=== PATIENT | male | born 1970 | race Caucasian/White ===

== ENCOUNTER → 2022-02-21 10:00 | Outpatient (BNVA) | payer SELFPAY | PROVIDERS: Visit Provider Emergency Medicine | DX: R10.11 Right upper quadrant pain (principal) | CPT/HCPCS: 80053; 85025 ==

== ENCOUNTER 2022-03-26 10:07 | Emergency (ER) | payer SELFPAY ==
[2022-03-26 10:33] VITALS: BP 164/97; PULSE 71; RESP 18; TEMP 36.8; O2SAT 95; BMI 39.0
[2022-03-26 10:40] VITALS: BP 138/90; RESP 18; O2SAT 93
--- NOTE | 2022-03-26 10:42 | USR_ITS ---
PROCEDURE INFORMATION: Exam: US Abdomen, Limited; Right Upper Quadrant Exam date and time: 03/26/2022 11:06 AM Age: 51 years old Clinical indication: Abdominal pain; Acute; Additional info: Ruq pain TECHNIQUE: Imaging protocol: Real time ultrasound of the abdomen with image documentation. Limited exam focused on the right upper quadrant. COMPARISON: No relevant prior studies available. FINDINGS: Liver: Enlarged liver with diffusely increased echogenicity, most commonly seen in hepatic steatosis, though other forms of parenchymal liver disease could have a similar appearance. There is an ill defined ficus of decreased attenuation adjacent to the gallbladder, likely representing focal fat sparing. Gallbladder: Normal. No gallstones. There is no gallbladder wall thickening. Biliary ducts: Normal. No stones. No dilation. Pancreas: Obscured by overlying bowel gas. Right kidney: Normal echogenicity. There is an incompletely characterized hypoechoic lesion in the lower kidney, measuring 1.4 x 1.1 x 1.5 cm. No hydronephrosis. US/US gall bladder 18361 IMPRESSION: 1. Hyperechoic liver, which can be seen with fatty infiltration or hepatocellular disease. 2. Incompletely characterized hypoechoic lesion in the right lower kidney. Further evaluation with contrast enhanced abdomen MRI is recommended.
--- NOTE | 2022-03-26 11:56 | ED_ITS ---
HPI - Abdominal Pain General: Chief Complaint: Abdominal Pain Stated Complaint: Gallbadder pain Time Seen by Provider: 03/26/22 11:30 History of Present Illness: 51-year-old male presents with epigastric pain that radiates around to the right side into his back. He reports that he gets worse after he eats. He gets kind of a fullness feeling. He has some some occasional nausea but none right now. No vomiting, no diarrhea. Patient reports been going on for 7-8 weeks. Patient reports no fever, cough, shortness of breath or other systemic complaints. Associated Symptoms: Reports bloating and nausea; Denies chills, diarrhea, fever(s) and vomiting Review of Systems Const: Denies: fever(s), chills or body aches Eyes: Denies: change in vision ENMT: Denies: throat pain or hoarseness Card: Denies: chest pain or palpitations Resp: Denies: dyspnea or productive cough GI: Reports: abdominal pain, nausea and bloating; Denies: vomiting or diarrhea : Denies: difficulty urinating or urinary frequency Musc: Denies: extremity pain or extremity swelling Skin/Breast: Denies: rash or pruritus Neuro: Denies: headache(s) or dizziness PFSH ED PFSH: Social History Smoking and tobacco status: current every day smoker Physical Exam Const: COMMON NORMALS: no acute distress, patient oriented x3, no limitations and alert NUTRITIONAL APPEARANCE: overweight HENMT: COMMON NORMALS: hearing grossly normal bilaterally and moist oral mucous membranes Eye: COMMON NORMALS: EOMs intact bilaterally and no scleral icterus Resp: COMMON NORMALS: normal respiratory effort, No retractions, No use of accessory muscles and clear to auscultation bilaterally AUSCULTATION: clear to auscultation bilaterally Cardio: COMMON NORMALS: regular rate and regular rhythm RATE: regular rate RHYTHM: regular rhythm GI: COMMON NORMALS: Normal to inspection, nondistended, normoactive bowel sounds present and Soft to palpation PALPATION: Yes Soft to palpation and Yes Tenderness to palpation present (GI) (very minimal epigastric ) Extremity: COMMON NORMALS: full ROM and capillary refill normal Neuro: COMMON NORMALS: patient oriented x3, moves all extremities, no focal motor deficits and no sensory deficits noted SENSORIUM/ORIENTATION: Yes alert Psych: COMMON NORMALS: mental status grossly normal, cooperative, normal affect and speech normal SPEECH: Yes normal speech Skin: COMMON NORMALS: no rashes or lesions noted and no wounds GENERAL SKIN EXAM: no rashes or lesions noted Course Vital Signs: Vital signs: Vital Signs Temperature 98.3 F 03/26/22 10:33 Pulse Rate 65 03/26/22 12:10 Respiratory Rate 18 03/26/22 12:10 Blood Pressure 138/90 03/26/22 12:10 Pulse Oximetry 93 03/26/22 12:10 Oxygen Delivery Me thod 03/26/22 12:10 MDM - Abdominal Pain Medical Decision Making Patient with negative right upper quadrant ultrasound, negative labs. Discussed with him that we will treat him to begin with for gastritis. I will give him a GI cocktail and recommended Pepcid twice daily for a week. The symptoms or not improving recommend he follows up with his primary care provider for a GI consultation. Discussed that he may need a gallbladder function test versus an upper GI. Patient stable and discharged home Lab Data : 03/26/22 12:22 03/26/22 12:22 Labs/Radiology: Radiology Impressions Gallbladder Ultrasound 03/26/22 10:42 IMPRESSION: 1. Hyperechoic liver, which can be seen with fatty infiltration or hepatocellular disease. 2. Incompletely characterized hypoechoic lesion in the right lower kidney. Further evaluation with contrast enhanced abdomen MRI is recommended. Laboratory Results WBC 9.9 10^3/uL (4.0-10.0) 03/26/22 12: RBC 5.37 10^6/uL (4.1-5.3) H 03/26/22 12:22 Hgb 15.8 g/dL (11.7-16.6) 03/26/22 12:22 Hct 46.5 % (42.0-52.0) 03/26/22 12: MCV 86.6 fl (80-94) 03/26/22 12: MCH 29.4 pg (28.0-34.0) 03/26/22 12: MCHC 34.0 g/dL (30.0-36.0) 03/26/22 12: RDW 12.2 % (12.1-15.1) 03/26/22 12:22 Plt Count 257 10^3/cmm (130-400) 03/26/22 12: MPV 10.3 fL (7.4-10.4) 03/26/22 12: Neut % (Auto) 55.8 % 03/26/22 12: Lymph % (Auto) 31.6 % 03/26/22 12: [place] % (Auto) 7.5 % 03/26/22 12: Eos % (Auto) 3.4 % 03/26/22 12: Baso % (Auto) 0.8 % 03/26/22 12: Neut # (Auto) 5.51 10^3/uL (1.8-7.7) 03/26/22 12: Lymph # (Auto) 3.1 10^3/uL (0.8-4.8) 03/26/22 12: [place]ent # (Auto) 0.7 10^3/uL (0.2-0.9) 03/26/22 12: Eos # (Auto) 0.3 10^3/uL (0.0-0.8) 03/26/22 12: Baso # (Auto) 0.1 10^3/uL (0.0-0.1) 03/26/22 12: Nucleated RBC % (auto) 0 % 03/26/22 12: Nucleated RBCs # 0.0 /100WBC 03/26/22 12: Potassium 4.0 mmol/L (3.5-5.1) 03/26/22 12: Chloride 101 mmol/L (98-107) 03/26/22 12: Carbon Dioxide 25 mmol/L (22-29) 03/26/22 12:22 Anion Gap 13.0 (5-19) 03/26/22 12:22 BUN 10 mg/dL (6-20) 03/26/22 12: Creatinine 0.7 mg/dL (0.7-1.2) 03/26/22 12: GFR Calculation 118.0 mL/min (90-130) 03/26/22 12:22 Glucose 108 mg/dL (65-115) 03/26/22 12:22 Calcium 9.3 mg/dL (8.5-10.5) 03/26/22 12:22 Total Bilirubin 0.3 mg/dL (0.15-1.2) 03/26/22 12:22 AST 14 U/L (0-40) 03/26/22 12:22 ALT 23 U/L (0-41) 03/26/22 12:22 Alkaline Phosphatase 63 U/L (40-130) 03/26/22 12:22 Total Protein 7.2 g/dL (6.6-8.7) 03/26/22 12:22 Albumin 4.0 g/dL (3.5-5.2) 03/26/22 12:22 Globulin 3.2 g/dL (1.3-4.6) 03/26/22 12:22 Lipase 45 U/L (13-60) 03/26/22 12:22 Urine Color Yellow (Yellow) 03/26/22 12:16 Urine Appearance Clear (CLEAR) 03/26/22 12:16 Urine pH 6 (5-7) 03/26/22 12:16 Ur Specific [place] 1.015 (1.005-1.030) 03/26/22 12:16 Urine Protein Neg (Negative) 03/26/22 12:16 Urine Glucose (UA) Norm (Normal) 03/26/22 12:16 Urine Ketones 1+ (Negative) H 03/26/22 12:16 Urine Blood Neg (Negative) 03/26/22 12:16 Urine Nitrate Negative (Negative) 03/26/22 12:16 Urine Bilirubin Neg (Negative) 03/26/22 12:16 Urine Urobilinogen Norm mg/dL (Negative) 03/26/22 12:16 Ur Leukocyte Esterase Negative (Negative) 03/26/22 12:16 Discharge Plan Discharge Patient Disposition: Home Clinical Impression: Abdominal pain, RUQ (right upper quadrant) Condition: Stable Prescriptions: No Action prednisone 20 mg tablet 60 mg PO DAILY 5 Days Qty: 15 0RF hydrocodone-acetaminophen 5-325 mg tablet 1 tab PO Q4H PRN (Reason: pain) 5 Days Qty: 20 0RF Discharge Orders: Discharge ED (Routine); Ordered 03/26/22 Ordered By: Kne Oneil Discharge Diet: Advance as tolerated Discharge Activity: Resume usual activity Patient Instructions: Abdominal Pain (ED), Opioid Safety, Pain Management Activity Restrictions/Additional Instructions: Pepcid/famotidine, 20 mg twice daily Follow-up with your primary care provider in 5 to 7 days if symptoms or not improving for further evaluation and further outpatient testing Coding Level of Care Code ED Tufting Machine Operator Single Needle for Chg Fwd Exam Comprehensive
[2022-03-26 12:10] VITALS: BP 138/90; PULSE 65; RESP 18; O2SAT 93
[2022-03-26] MEDS: ondansetron 2 mg/ML SDV 2 mL 4 MG IVP (12:10)
--- NOTE | 2022-03-26 12:10 | PC.NURSE ---
States pain is worse with eating.
[2022-03-26 12:31] LABS: Basophils # 0.1 10^3/uL (0.0-0.1); Basophils % 0.8 %; Eosinophils # 0.3 10^3/uL (0.0-0.8); Eosinophils % 3.4 %; Hematocrit 46.5 % (42.0-52.0); Hemoglobin 15.8 g/dL (11.7-16.6); Lymphocytes # 3.1 10^3/uL (0.8-4.8); Lymphocytes % 31.6 %; Mean Corpuscular Hemoglobin 29.4 pg (28.0-34.0); Mean Corpuscular Volume 86.6 fl (80-94); Mean Platelet Volume 10.3 fL (7.4-10.4); Monocytes # 0.7 10^3/uL (0.2-0.9); Monocytes % 7.5 %; Neutrophils # 5.51 10^3/uL (1.8-7.7); Neutrophils % 55.8 %; Nucleated Red Blood Cells % 0 %; Platelet Count 257 10^3/cmm (130-400); Red Blood Count 5.37 10^6/uL (4.1-5.3); Red Cell Distribution Width 12.2 % (12.1-15.1); White Blood Count 9.9 10^3/uL (4.0-10.0)
[2022-03-26 12:33] LABS: Add Urine Microscopic? NO; Charge for UA Resulting for Rev
[2022-03-26 12:45] LABS: Bilirubin Urine Neg (Negative); Blood Urine Neg (Negative); Glucose Urine UA Norm (Normal); Ketones Urine 1+ (Negative); Leukocyte Esterase Urine Negative (Negative); Nitrate Urine Negative (Negative); Protein Urine Neg (Negative); Specific Gravity, Urine 1.015 (1.005-1.030); Urine Appearance Clear (CLEAR); Urine Color Yellow (Yellow); Urobilinogen Urine Norm (Negative); pH Urine 6 (5-7)
[2022-03-26 13:04] LABS: Alanine Aminotransferase 23 U/L (0-41); Alkaline Phosphatase 63 U/L (40-130); Aspartate Amino Transferase 14 U/L (0-40); Blood Urea Nitrogen 10 mg/dL (6-20); Calcium 9.3 mg/dL (8.5-10.5); Carbon Dioxide 25 mmol/L (22-29); Chloride 101 mmol/L (98-107); Globulin 3.2 g/dL (1.3-4.6); Glucose 108 mg/dL (65-115); Lipase 45 U/L (13-60); Osmolality Calculated 280 mOsm/kg (285-295); Sodium 135 mmol/L (136-145); Total Bilirubin 0.3 mg/dL (0.15-1.2); Total Protein 7.2 g/dL (6.6-8.7)
[2022-03-26] MEDS: lidocaine 2% viscous 15 ML, aluminum-mag hydrox-simethicon 30 ML, sucralfate oral liq 1 GM PO (13:21)
[2022-03-26 13:36] VITALS: BP 134/90; PULSE 88; RESP 18; O2SAT 96
== END 2022-03-26 13:37 | disposition home or self-care (01) ==
PROVIDERS: Emergency Provider Student in an Organized Health Care Education/Training Program
DX: R10.11 Right upper quadrant pain (principal); F17.210 Nicotine dependence, cigarettes, uncomplicated
CPT/HCPCS: 76705; 80053; 81003; 83690; 85025; 96374; 99285; J2405